=== PATIENT | female | born 1975 | race Two or more races ===

== ENCOUNTER 2020-09-28 23:01 | Emergency (ER) | payer OTHER ==
[~2020-09-28] VITALS: Ht 172.7 cm; Wt 53.8 kg
[2020-09-28] MEDS ORDERED: ONDANSETRON ODT 4 MG ONE (23:23)
--- NOTE | 2020-09-28 23:28 | NUR ---
patient resting in bed in NAD. call santiago in reach. visitor at bedside. will continue to monitor
[2020-09-28] MEDS ORDERED: ONDANSETRON ODT 4 MG PO ONE (23:30)
[2020-09-28 23:37] LABS: BASOPHILS % (AUTO) 0 % (0-1); EOSINOPHILS % (AUTO) 1 % (1-7); LYMPHOCYTES % (AUTO) 14 % (22-44); MEAN CORPUSCULAR HEMOGLOBIN 25.6 pg (27.0-34.8); MEAN CORPUSCULAR HGB CONC 32.5 g/dL (32.4-35.8); MEAN PLATELET VOLUME 7.5 fL (7.4-10.4); MONOCYTES % (AUTO) 7 % (2-9); NEUTROPHILS % (AUTO) 78 % (42-75); PLATELET COUNT 264 x10^3/uL (130-400); RED BLOOD COUNT 4.12 x10^6/uL (3.82-5.3); RED CELL DISTRIBUTION WIDTH 14.7 % (9.6-15.2)
[2020-09-28 23:38] LABS: MD NO
[2020-09-28 23:51] LABS: ALBUMIN 3.8 g/dL (3.4-5.0); ANION GAP 7 mmol/L (5-15); CALCIUM 8.8 mg/dL (8.5-10.1); CHLORIDE 108 mmol/L (98-107)
[2020-09-28 23:56] LABS: ALANINE AMINOTRANSFERASE 23 U/L (12-78); ALKALINE PHOSPHATASE 53 U/L (45-117); BILIRUBIN,TOTAL 0.6 mg/dL (0.2-1.0); CREATININE 0.73 mg/dL (0.55-1.02); TOTAL PROTEIN 7.5 g/dL (6.4-8.2)
--- NOTE | 2020-09-29 00:45 | NUR ---
dischage instructions reviewed with patient and visitor remained at bedside. no further questions. steady gait to lobby. No IV was placed during this ER visit. all personal belongings with patient on dc.
[2020-09-29 01:10] VITALS: BP 121/70
== END 2020-09-29 01:14 | disposition home or self-care (01) ==
LOC: ED 09-29 00:07
DX: R11.2 Nausea with vomiting, unspecified (principal); R42 Dizziness and giddiness; R94.31 Abnormal electrocardiogram [ECG] [EKG]
CPT/HCPCS: 36415; 80053; 84703; 85025; 93005; 99284; Q0162